=== PATIENT | female | born 1950 | race Caucasian/White ===

== ENCOUNTER 2020-12-07 14:21 | Emergency (ER) | payer MEDICARE, OTHER ==
[~2020-12-07 14:21] MED LIST: CLARITIN10 MG PO; JANUVIA50 MG PO; K-DUR20 MEQ PO; KLOR-CON M2020 MEQ PO; LASIX40 MG PO; NORCO 5-325 TA1 EACH PO; NORVASC 5MG TABL5 MG PO; ONDANSETRON HCL4 MG PO; PEPCID AC20 MG PO; PROMETHEGA12.5 MG/SU PR; PROTONIX 40MG T40 MG PO; REGLAN10 MG PO; SINGULAIR10 MG PO; TRAZODONE 100M100 MG PO; VITAMIN D350000 UNIT PO; XANAX0.5 MG PO
[2020-12-07 19:55] LABS: BASOPHIL 0.3 % (0-2); EOSINOPHIL 0 % (0-7); HCT 38.5 % (37.0-47.0); HGB 12.7 g/dl (12.5-16.0); LYMPHOCYTE 10.4 % (15-48); MCH 28.6 pg (25.0-31.0); MCV 86.7 fL (78.0-100.0); MONOCYTE 10.5 % (0-12); MPV 10.4 fL (6.0-9.5); NEUTROPHIL 78.3 % (41-80); NRBC 0; PLT 231 K/uL (150-400); RBC 4.44 M/uL (4.20-5.40); RDW 14.3 % (11.5-14.0); WBC 15.6 K/uL (4.0-10.5)
[2020-12-07 20:34] LABS: BILIRUBIN NEGATIVE (NEGATIVE); BLOOD NEGATIVE Ery/uL (NEGATIVE); CLARITY HAZY (CLEAR); COLOR YELLOW (YELLOW); GLUCOSE (U) NORMAL (NORMAL); LEUKOCYTES 1+ Leu/uL (NEGATIVE); NITRITE NEGATIVE (NEGATIVE); PROTEIN NEGATIVE (NEGATIVE); UROBILINOGEN 0.2 mg/dL (0.2-1.0)
[2020-12-07 20:38] LABS: BACTERIA 3+; URINARY WBC 20-50
[2020-12-07 20:57] LABS: LACTIC ACID 0.7 mmol/L (0.4-1.9)
[2020-12-07 21:02] LABS: ALBUMIN 2.8 g/dL (3.4-5.0); BILIRUBIN - TOTAL 1.4 mg/dL (0.2-1.0); BUN/CREAT RATIO (CALC) 10.3 RATIO; CREATININE 1.26 mg/dL (0.51-0.95); GLOBULIN (CALCULATION) 4.1 g/dL; TOTAL PROTEIN 6.9 g/dL (6.4-8.2)
[2020-12-07 21:27] LABS: MAGNESIUM 1.5 mg/dL (1.8-2.4); PHOSPHORUS 2.8 mg/dL (2.6-4.7)
[2020-12-07] MEDS ORDERED: MACROBID100 MG PO (21:37)
[2020-12-07] MEDS ORDERED: K-DUR20 MEQ PO (21:37)
== END 2020-12-07 22:50 | disposition home or self-care (01) ==
LOC: FER 14:21
PROVIDERS: Nurse Practitioner Family
DX: M79.661 Pain in right lower leg (principal); M54.2 Cervicalgia; M25.552 Pain in left hip; N39.0 Urinary tract infection, site not specified; E87.6 Hypokalemia; I10 Essential (primary) hypertension; E11.9 Type 2 diabetes mellitus without complications; Z79.891 Long term (current) use of opiate analgesic; Z85.3 Personal history of malignant neoplasm of breast; Z86.718 Personal history of other venous thrombosis and embolism; Z90.10 Acquired absence of unspecified breast and nipple; Z88.6 Allergy status to analgesic agent; Z88.2 Allergy status to sulfonamides; Z91.040 Latex allergy status
CPT/HCPCS: 36415; 80053; 81001; 82728; 83605; 83735; 84100; 84145; 85025; 85379; 87040; 87076; 87088; 87186; 93971

== ENCOUNTER 2021-09-08 20:00 | Emergency (ER) | payer MEDICARE, OTHER ==
[~2021-09-08 20:00] MED LIST changes: +MACROBID100 MG PO
[2021-09-08 21:41] LABS: BASOPHIL 0.4 % (0-2); EOSINOPHIL 0.1 % (0-7); HCT 45.3 % (37.0-47.0); HGB 14.1 g/dl (12.5-16.0); LYMPHOCYTE 8.2 % (15-48); MCH 26.9 pg (25.0-31.0); MCHC 31.1 g/dL (32.0-36.0); MCV 86.3 fL (78.0-100.0); MONOCYTE 5.3 % (0-12); MPV 10.2 fL (6.0-9.5); NEUTROPHIL 85.7 % (41-80); NRBC 0; PLT 284 K/uL (150-400); RBC 5.25 M/uL (4.20-5.40); RDW 16.9 % (11.5-14.0); WBC 14.7 K/uL (4.0-10.5)
[2021-09-08 21:53] LABS: ALBUMIN 3.7 g/dL (3.4-5.0); BILIRUBIN - TOTAL 0.6 mg/dL (0.2-1.0); BUN/CREAT RATIO (CALC) 10.4 RATIO; CREATININE 1.06 mg/dL (0.51-0.95); GLOBULIN (CALCULATION) 3.7 g/dL; MAGNESIUM 1.6 mg/dL (1.8-2.4); POTASSIUM 4.3 mmol/L (3.5-5.1); TOTAL PROTEIN 7.4 g/dL (6.4-8.2)
[2021-09-08] MEDS ORDERED: BENTYL10 MG PO (23:32)
[2021-09-08] MEDS ORDERED: LOPERAMIDE2 MG PO (23:32)
== END 2021-09-09 00:40 | disposition home or self-care (01) ==
LOC: FER 20:00
PROVIDERS: Emergency Medicine
DX: R11.2 Nausea with vomiting, unspecified (principal); R10.9 Unspecified abdominal pain; I25.2 Old myocardial infarction; Z88.2 Allergy status to sulfonamides; Z91.040 Latex allergy status; Z20.822 Contact with and (suspected) exposure to COVID-19
CPT/HCPCS: 36415; 36600; 80053; 82803; 83605; 83735; 84145; 85025; 87040; 87077; 87186; 93005; J1170; J2405; J7030; U0002